=== PATIENT | male | born 1960 | race Two or more races ===

== ENCOUNTER 2020-08-11 06:14 | Emergency (ER) | payer BC, OTHER ==
[~2020-08-11] VITALS: Ht 162.6 cm; Wt 85.0 kg
--- NOTE | 2020-08-11 06:50 | NUR ---
PT CAME INTO ED TODAY DUE TO LINGERING COUGH AND SOB WITH ACTIVITY. PT REPORTS POSITIVE COVID TEST 07/23, SELF ISOLATING SINCE THEN. PT STATES HE IS A BIT SANDER AND WHEN HE IS MOVING AROUND HE FEELS REALLY SOB AND LIKE HE JUST CANT CATCH HIS BREATH OR BREATHE. PT RESTING ON GURNEY, GROSS NEURO INTACT, NAD, APPEARS COMFORTABLE. PROVIDED WARM BLANKETS FOR ADDITIONAL COMFORT. PT PLACED ON SPO2/BP/ECG MONITORING. REPORT TO NATALYA RN, PT CARE TRANSFERRED AT THIS TIME.
[2020-08-11 06:53] LABS: BASOPHILS % (AUTO) 1 % (0-1); EOSINOPHILS % (AUTO) 1 % (1-7); LYMPHOCYTES % (AUTO) 39 % (22-44); MD NO; MEAN CORPUSCULAR HEMOGLOBIN 30.7 pg (27.5-34.5); MEAN CORPUSCULAR HGB CONC 33.9 g/dL (33.2-36.2); MEAN PLATELET VOLUME 7.8 fL (7.4-10.4); MONOCYTES % (AUTO) 9 % (2-9); NEUTROPHILS % (AUTO) 49 % (42-75); PLATELET COUNT 404 x10^3/uL (130-400); RED BLOOD COUNT 5.02 x10^6/uL (4.38-5.82); RED CELL DISTRIBUTION WIDTH 13.4 % (9.4-14.8)
[2020-08-11 07:01] LABS: ALANINE AMINOTRANSFERASE 53 U/L (12-78); ALBUMIN 3.2 g/dL (3.4-5.0); ANION GAP 4 mmol/L (5-15); CALCIUM 8.9 mg/dL (8.5-10.1); CHLORIDE 107 mmol/L (98-107); CREATININE 1.04 mg/dL (0.7-1.3)
[2020-08-11 07:03] LABS: ALKALINE PHOSPHATASE 78 U/L (45-117); BILIRUBIN,TOTAL 0.6 mg/dL (0.2-1.0); TOTAL PROTEIN 7.7 g/dL (6.4-8.2)
[2020-08-11 08:10] VITALS: BP 124/68
== END 2020-08-11 08:21 | disposition home or self-care (01) ==
LOC: ED 08:15
DX: J18.9 Pneumonia, unspecified organism (principal); Z20.828 Contact with and (suspected) exposure to other viral communicable diseases; R06.02 Shortness of breath; R00.0 Tachycardia, unspecified; I10 Essential (primary) hypertension; E78.5 Hyperlipidemia, unspecified; E11.9 Type 2 diabetes mellitus without complications
CPT/HCPCS: 36415; 71045; 80053; 85025; 87635; 99284